=== PATIENT | male | born 1935 | race Caucasian/White ===

== ENCOUNTER 2020-02-06 13:45 | Observation (INO) | payer MEDICARE, OTHER ==
[2020-02-06] MEDS ORDERED: Zofran 4 MG/2 ML VIAL IV ONE (13:53)
[2020-02-06] MEDS ORDERED: DECADRON 10MG INJ. IV ONE (13:53)
[2020-02-06] MEDS ORDERED: Hydromorphone 1 mg/ml Ampule IV ONE ×2 (13:53→17:44)
[2020-02-06] MEDS ORDERED: Sodium Chloride 0.9% 1000 ML 1,000 ML IV SCH ×2 (14:00→18:45)
[2020-02-06 14:10] LABS: BASOPHIL % 0.7 % (0.0-0.4); Basophil (Absolute #) 0.04 (0-0.4); Eosinophil % 3.1 % (0.00-5.0); Eosinophil (Absolute #) 0.18 (0-0.5); Hematocrit 42.2 % (42-50); Hemoglobin 14.1 gm/dl (12.5-18.0); Lymphocyte (Absolute #) 1.01 (1.0-4.6); Lymphocytes % 17.4 % (24.0-44.0); Mean Cell Volume 95.7 fl (78-100); Mean Corpuscular Hgb Concent. 33.4 g/dl (32-36); Mean Platelet Volume 10.2 fl (7.5-11.0); Monocyte (Absolute #) 0.39 (0.0-1.3); Monocytes % 6.7 % (0.0-12.0); Neutrophil % 72.1 % (36.0-66.0); Platelet Count 160 K/mm3 (150-450); Red Blood Count 4.41 M/mm3 (4.1-5.6); Red Cell Distribution Width 14.6 % (11.5-14.0); White Blood Count 5.8 K/mm3 (4.0-10.5)
[2020-02-06] MEDS ORDERED: Catapres 0.1 MG PO ONE (14:13)
[2020-02-06 14:20] LABS: ALBUMIN 4.4 g/dL (3.5-5.0); ANION GAP 12.1 MEQ/L (5-15); BILIRUBIN,TOTAL 0.7 mg/dL (0.2-1.3); Calcium 10.8 mg/dL (8.4-10.2); Creatinine 1 1.25 mg/dL (0.66-1.25); Potassium 3.9 mmol/L (3.5-5.1); Total Protein 7.8 g/dL (6.3-8.2)
[2020-02-06] MEDS ORDERED: Hydromorphone 1 mg/ml Ampule ONE ×2 (14:24→17:50)
[2020-02-06] MEDS ORDERED: Zofran 4 MG/2 ML VIAL ONE (14:24)
[2020-02-06] MEDS ORDERED: DECADRON 10MG INJ. ONE (14:24)
[2020-02-06] MEDS ORDERED: Sodium Chloride 0.9% 1000 ML 1,000 ML ONE ×2 (14:25→20:55)
[2020-02-06 14:28] LABS: Appearance CLEAR (CLEAR); Bilirubin NEGATIVE (NEGATIVE); Blood NEGATIVE Ery/ul (0-5); Glucose NEGATIVE (NEGATIVE); Ketones NEGATIVE (NEGATIVE); Leukocyte Esterase NEGATIVE (NEGATIVE); Nitrite NEGATIVE (NEGATIVE); Protein,Urine Dip NEGATIVE (Negative); Specific Gravity 1.004 (1.005-1.025); Urobilinogen NEGATIVE mg/dL (0-1)
[2020-02-06] MEDS ORDERED: Catapres 0.1 MG ONE (14:33)
--- NOTE | 2020-02-06 14:35 | ERPHSYRPT ---
- History of Present Illness Time Seen by Provider: 02/06/20 13:55 Source: patient Exam Limitations: no limitations Patient Subjective Stated Complaint: pain in right lower back with no radiation Triage Nursing Assessment: Pt brought to the ER by EMS, pt was mowing the grass when he twisted his back, pt in severe pain in right lower back above his hip, denies radiation of pain, rates pain 10/10, pratima LE swelling, hypertensive, pt reports having this pain on pratima sides in the past that lasted approx 3 days and then it would go away, no difficulties with strength Physician History: Is an 84-year-old white male who presents with a complaint of severe back pain right side just above the buttocks and the lower back he was mowing his yard and the pain became more severe this is been going on and off for 2 weeks but not getting better he denies any nausea vomiting diarrhea change in urination or abdominal pain. He has no known injury has a history of sciatica. Timing/Duration: week(s) (2) Method of Injury: unknown Quality: sharp, stabbing Back Pain Location: lumbar spine Back Pain Radiation: buttocks (rioght) Modifying Factors: Improves With: nothing Associated Symptoms: denies symptoms Previous symptoms: same symptoms as today Allergies/Adverse Reactions: amlodipine [From Norvasc] Allergy (Verified 02/06/20 14:02) oxytetracycline [From Terramycin] Allergy (Verified 02/06/20 14:02) Home Medications: Amiodarone HCl 200 mg PO DAILY 02/06/20 [History] Benazepril HCl 40 mg PO DAILY 02/06/20 [History] Diltiazem HCl [Diltiazem ER] 240 mg PO DAILY 02/06/20 [History] Hydrochlorothiazide 25 mg [hydroDIURIL 25 MG] 25 mg PO DAILY 02/06/20 [ History] Levothyroxine Sodium [Synthroid] 175 mcg PO DAILY 02/06/20 [History] Lovastatin 40 mg PO DAILY 02/06/20 [History] Meloxicam 7.5 mg [Mobic 7.5 MG] 7.5 mg PO DAILY 02/06/20 [History] Metoprolol Succinate 100 mg [Toprol Xl 100 MG] 50 mg PO DAILY 02/06/20 [ History] Metoprolol Tartrate 100 mg PO DAILY 02/06/20 [History] Terazosin HCl 1 mg [Hytrin 1 mg] 1 mg PO DAILY 02/06/20 [History] Warfarin Sodium 2.5 mg [Coumadin 2.5 MG] 2.5 mg PO DAILY 02/06/20 [History ] Travel Risk - International Travel Have you traveled outside of the country in past 3 weeks: No Have you or anyone close to you been diagnosed with or: No Do your reside in a community with a known COVID-19 case?: No If Yes where:: [facility] - Coronavirus Screening Has patient experienced Coronavirus symptoms: No - Review of Systems Constitutional: No Fever, No Chills Eyes: No Symptoms Ears, Nose, & Throat: No Symptoms Respiratory: No Cough, No Dyspnea Cardiac: No Chest Pain, No Edema, No Syncope Abdominal/Gastrointestinal: No Abdominal Pain, No Nausea, No Vomiting, No Diarrhea Genitourinary Symptoms: No Dysuria Musculoskeletal: Back Pain, No Neck Pain Skin: No Rash Neurological: No Dizziness, No Focal Weakness, No Sensory Changes Psychological: No Symptoms Endocrine: No Symptoms All Other Systems: Reviewed and Negative - Past Medical History Pertinent Past Medical History: Yes Cardiac History: Arrhythmia, Hypertension History: Bladder Cancer - Past Surgical History Past Surgical History: Yes Genitourinary: Other - Social History Smoking Status: Never smoker Exposure to second hand smoke: No Drug Use: none Patient Lives Alone: No - Nursing Vital Signs Nursing Vital Signs: Initial Vital Signs Temperature 97.4 F 02/06/20 13:49 Pulse Rate 65 02/06/20 13:49 Blood Pressure 226/96 02/06/20 13:49 O2 Sat by Pulse Oximetry 99 02/06/20 13:49 Pain Scale Pain Intensity [Right Distal 10 Back] Pain Intensity 4 - Physical Exam General Appearance: no apparent distress, alert Eye Exam: PERRL/EOMI, eyes nml inspection Neck Exam: normal inspection, non-tender, supple, full range of motion, No meningismus, No midline tenderness Respiratory Exam: normal breath sounds, lungs clear, No respiratory distress Cardiovascular Exam: regular rate/rhythm, normal heart sounds Gastrointestinal Exam: soft, No tenderness, No mass Back Exam: vertebral tenderness, decreased range of motion, muscle spasm, point tenderness (Point tenderness over the right SI joint), No normal range of motion Extremity Exam: normal inspection, normal range of motion, No calf tenderness, No pedal edema Neurologic Exam: alert, oriented x 3, cooperative, 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 Those were felt to be inadequate we did talk to [facility] Dr. Balderas who asked that we do a CTA of the abdomen that was done and it does not show any dissection or hemorrhage. Family does report a history of previous aneurysm which has apparently been lost to follow-up.) Ordered Tests: Active Orders 24 hr Category Date Time Status CTA ABD/PEL W AND/OR W/O CONTR [CT] Stat Exams 02/06/20 16:39 Taken CTA CHEST W AND/OR WO [CT] Stat Exams 02/06/20 16:39 Taken LUMBAR SPINE W/O [CT] Stat Exams 02/06/20 13:52 Completed RECONSTRUCTION [CT] Stat Exams 02/06/20 15:07 Completed CBC W DIFF Stat Lab 02/06/20 14:00 Completed CMP Stat Lab 02/06/20 14:00 Completed LIPASE Stat Lab 02/06/20 14:00 Completed Lactic Acid Stat Lab 02/06/20 14:10 Completed PROTIME WITH INR Stat Lab 02/06/20 14:00 Completed UA W/RFX UR CULTURE Stat Lab 02/06/20 14:18 Completed Medication Summary Generic Name Dose Route Start Last Admin Trade Name Freq PRN Reason Stop Dose Admin Sodium Chloride 1,000 mls @ 100 mls/hr 02/06/20 14:00 02/06/20 14:27 Sodium Chloride 0.9% 1000 Ml IV 03/07/20 13:59 100 mls/hr .Q10H HILARIA Administration Discontinued Medications Generic Name Dose Route Start Last Admin Trade Name Freq PRN Reason Stop Dose Admin Clonidine 0.1 mg 02/06/20 14:13 02/06/20 14:37 Catapres 0.1 Mg PO 02/06/20 14:14 0.1 mg STAT ONE Administration Clonidine Confirm 02/06/20 14:33 Catapres 0.1 Mg Administered 02/06/20 14:34 Dose 0.1 mg .ROUTE .STK-MED ONE Dexamethasone Sodium Phosphate 10 mg 02/06/20 13:53 02/06/20 14:26 Decadron 10mg Inj. IV 02/06/20 13:54 10 mg STAT ONE Administration Dexamethasone Sodium Phosphate Confirm 02/06/20 14:24 Decadron 10mg Inj. Administered 02/06/20 14:25 Dose 10 mg .ROUTE .STK-MED ONE Hydromorphone HCl 1 mg 02/06/20 13:53 02/06/20 14:26 Hydromorphone 1 Mg/Ml Ampule IV 02/06/20 13:54 1 mg STAT ONE Administration Hydromorphone HCl Confirm 02/06/20 14:24 Hydromorphone 1 Mg/Ml Ampule Administered 02/06/20 14:25 Dose 1 mg .ROUTE .STK-MED ONE Hydromorphone HCl 1 mg 02/06/20 17:44 02/06/20 17:52 Hydromorphone 1 Mg/Ml Ampule IV 02/06/20 17:45 1 mg STAT ONE Administration Hydromorphone HCl Confirm 02/06/20 17:50 Hydromorphone 1 Mg/Ml Ampule Administered 02/06/20 17:51 Dose 1 mg .ROUTE .STK-MED ONE Ondansetron HCl 4 mg 02/06/20 13:53 02/06/20 14:26 Zofran 4 Mg/2 Ml Vial IV 02/06/20 13:54 4 mg STAT ONE Administration Ondansetron HCl Confirm 02/06/20 14:24 Zofran 4 Mg/2 Ml Vial Administered 02/06/20 14:25 Dose 4 mg .ROUTE .STK-MED ONE Lab/Rad Data: Laboratory Result Diagrams 02/06/20 14:00 02/06/20 14:00 Laboratory Results 02/06/20 02/06/20 02/06/20 Range/Units 14:18 14:10 14:00 WBC (4.0-10.5) K/mm3 RBC (4.1-5.6) M/mm3 Hgb (12.5-18.0) gm/dl Hct (42-50) % MCV (78-100) fl MCH (26-32) pg MCHC (32-36) g/dl RDW (11.5-14.0) % Plt Count (150-450) K/mm3 MPV (7.5-11.0) fl Gran % (36.0-66.0) % Eos # (Auto) (0-0.5) Absolute Lymphs (auto) (1.0-4.6) Absolute Monos (auto) (0.0-1.3) Lymphocytes % (24.0-44.0) % Monocytes % (0.0-12.0) % Eosinophils % (0.00-5.0) % Basophils % (0.0-0.4) % Absolute Granulocytes (1.4-6.9) Basophils # (0-0.4) PT 38.3 H (8.83-12.87) SECONDS INR 3.31 H (0.8-3.0) Sodium (137-145) mmol/L Potassium (3.5-5.1) mmol/L Chloride (98-107) mmol/L Carbon Dioxide (22-30) mmol/L Anion Gap (5-15) MEQ/L BUN (9-20) mg/dL Creatinine (0.66-1.25) mg/dL Estimated GFR ML/MIN Glucose (74-106) mg/dL Lactic Acid 1.3 (0.4-2.0) Calcium (8.4-10.2) mg/dL Total Bilirubin (0.2-1.3) mg/dL AST (17-59) U/L ALT (0-50) U/L Alkaline Phosphatase (38-126) U/L Serum Total Protein (6.3-8.2) g/dL Albumin (3.5-5.0) g/dL Lipase (23-300) U/L Urine Color STRAW (YELLOW) Urine Appearance CLEAR (CLEAR) Urine pH 8.0 (5-6) Ur Specific [place] 1.004 (1.005-1.025) Urine Protein NEGATIVE (Negative) Urine Ketones NEGATIVE (NEGATIVE) Urine Blood NEGATIVE (0-5) Ayaz/ul Urine Nitrite NEGATIVE (NEGATIVE) Urine Bilirubin NEGATIVE (NEGATIVE) Urine Urobilinogen NEGATIVE (0-1) mg/dL Ur Leukocyte Esterase NEGATIVE (NEGATIVE) Urine WBC (Auto) NONE (0-5) /HPF Urine RBC (Auto) 3-5 (0-2) /HPF U Epithel Cells (Auto) NONE (FEW) /HPF Urine Bacteria (Auto) NONE (NEGATIVE) /HPF Urine Culture Reflexed NO (NO) Urine Glucose NEGATIVE (NEGATIVE) mg/dL 02/06/20 02/06/20 02/06/20 Range/Units 14:00 14:00 14:00 WBC 5.8 (4.0-10.5) K/mm3 RBC 4.41 (4.1-5.6) M/mm3 Hgb 14.1 (12.5-18.0) gm/dl Hct 42.2 (42-50) % MCV 95.7 (78-100) fl MCH 32.0 (26-32) pg MCHC 33.4 (32-36) g/dl RDW 14.6 H (11.5-14.0) % Plt Count 160 (150-450) K/mm3 MPV 10.2 (7.5-11.0) fl Gran % 72.1 H (36.0-66.0) % Eos # (Auto) 0.18 (0-0.5) Absolute Lymphs (auto) 1.01 (1.0-4.6) Absolute Monos (auto) 0.39 (0.0-1.3) Lymphocytes % 17.4 L (24.0-44.0) % Monocytes % 6.7 (0.0-12.0) % Eosinophils % 3.1 (0.00-5.0) % Basophils % 0.7 (0.0-0.4) % Absolute Granulocytes 4.20 (1.4-6.9) Basophils # 0.04 (0-0.4) PT (8.83-12.87) SECONDS INR (0.8-3.0) Sodium 140 (137-145) mmol/L Potassium 3.9 (3.5-5.1) mmol/L Chloride 106 (98-107) mmol/L Carbon Dioxide 26 (22-30) mmol/L Anion Gap 12.1 (5-15) MEQ/L BUN 19 (9-20) mg/dL Creatinine 1.25 (0.66-1.25) mg/dL Estimated GFR 58.6 ML/MIN Glucose 95 (74-106) mg/dL Lactic Acid (0.4-2.0) Calcium 10.8 H (8.4-10.2) mg/dL Total Bilirubin 0.70 (0.2-1.3) mg/dL AST 26 (17-59) U/L ALT 19 (0-50) U/L Alkaline Phosphatase 103 (38-126) U/L Serum Total Protein 7.8 (6.3-8.2) g/dL Albumin 4.4 (3.5-5.0) g/dL Lipase 43 (23-300) U/L Urine Color (YELLOW) Urine Appearance (CLEAR) Urine pH (5-6) Ur Specific [place] (1.005-1.025) Urine Protein (Negative) Urine Ketones (NEGATIVE) Urine Blood (0-5) Ayaz/ul Urine Nitrite (NEGATIVE) Urine Bilirubin (NEGATIVE) Urine Urobilinogen (0-1) mg/dL Ur Leukocyte Esterase (NEGATIVE) Urine WBC (Auto) (0-5) /HPF Urine RBC (Auto) (0-2) /HPF U Epithel Cells (Auto) (FEW) /HPF Urine Bacteria (Auto) (NEGATIVE) /HPF Urine Culture Reflexed (NO) Urine Glucose (NEGATIVE) mg/dL - Progress Progress: unchanged - Departure Departure Disposition: Observation Clinical Impression: Intractable back pain, Abdominal aortic aneurysm Condition: Fair Critical Care Time: No
[2020-02-06 14:40] LABS: INR 3.31 (0.8-3.0); PROTIME 38.3 SECONDS (8.83-12.87)
--- NOTE | 2020-02-06 14:48 | XRAY ---
Indication: Low back pain. Multiple contiguous axial images obtained through the lumbar spine. Two-dimensional sagittal and coronal reformatted images obtained. Comparison: None Osseous structures demineralized consistent with patient's age. There is moderate multilevel bridging/nonbridging thoracolumbar osteophytes. The T12-L4 disc levels are negative for large disc herniation or spinal canal stenosis. Facets are symmetric with mild bilateral degenerative facet hypertrophy. At the L4-L5 level, there is spinal canal narrowing due to combination of mild annular disc bulge and moderate bilateral degenerative facet/ligamentum flavum hypertrophy. Mean AP thecal sac diameter is 5-6 mm. Also bilateral foraminal narrowing. At the L5-S1 level, there is minimal broad-based disc bulge and moderate bilateral degenerative facet hypertrophy with subsequent bilateral foraminal narrowing. Sagittal and coronal reformatted images demonstrates normal alignment with vertebral body heights/disc spaces maintained. No acute compression fracture or subluxation. Visualized noncontrasted soft tissues demonstrates extensive aortic calcifications with incompletely visualized distal AAA at least 4.8 cm in diameter. Impression: 1. Osteopenia and multilevel degenerative disc disease, greatest L4-L5 level. Outpatient MRI may yield further information. 2. Negative for acute fracture or subluxation. 3. 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
--- NOTE | 2020-02-06 15:36 | XRAY ---
Indication: Rib related. Low back pain. Axial, coronal, and sagittal reformatted images of the abdomen obtained using the raw data from the CT lumbar spine study of the same day. Extensive scattered aortoiliac calcifications including origin of the left and right main renal arteries. Distal fusiform AAA measures 4.3 x 5.0 x 3.2 cm in greatest AP, transverse, and CC projections respectively. Smaller 3.5 x 2.7 cm fusiform aneurysm just inferior to the main renal arteries. Lack of IV contrast precludes further characterization. No free fluid/air. Elsewhere right kidney demonstrates a few cysts, largest 1.5 cm. Tiny 4 mm gallstone. Tiny calcified hepatic/splenic granulomas. Mild diffuse scattered colonic fecal debris. Incompletely visualized markedly distended urinary bladder concerning for outlet obstruction versus neurogenic bladder. Remaining visualized liver, pancreas, spleen, adrenal glands, kidneys, and proximal ureters appear unremarkable for noncontrast exam. Impression: 1. Extensive arteriosclerotic disease with distal AAA as detailed. 2. Incompletely visualized markedly distended urinary bladder. Rule out outlet obstruction versus neurogenic bladder. 3. Incidental tiny gallstone, right renal cysts, mild fecal stasis, and evidence for old granulomatous disease.
[2020-02-06] MEDS ORDERED: DILAUDID 2 MG INJECTION IV PRN (18:32)
[2020-02-06] MEDS ORDERED: Toprol Xl 50 MG PO SCH (22:00)
[2020-02-06] MEDS ORDERED: Cyclobenzaprine 10 MG PO SCH (22:00)
[2020-02-06] MEDS ORDERED: Coumadin 5 MG ONE (22:08)
[2020-02-06] MEDS: Cordarone 200 MG PO SCH (22:16)
[2020-02-06] MEDS: SYNTHROID 100 MCG PO SCH (22:16)
[2020-02-06] MEDS: ZOCOR 20MG PO SCH (22:16)
[2020-02-06] MEDS: SYNTHROID 75 MCG PO SCH (22:16)
[2020-02-06] MEDS: Coumadin 5 MG PO SCH (22:17)
[2020-02-07] MEDS: Lotensin 10 MG PO SCH (05:13)
[2020-02-07 05:21] LABS: Absolute Neutrophil Ct (ANC) 4.65 (1.4-6.9); BASOPHIL % 0.2 % (0.0-0.4); Basophil (Absolute #) 0.01 (0-0.4); Eosinophil % 0.2 % (0.00-5.0); Eosinophil (Absolute #) 0.01 (0-0.5); Hematocrit 43.1 % (42-50); Hemoglobin 14.3 gm/dl (12.5-18.0); Lymphocyte (Absolute #) 0.46 (1.0-4.6); Lymphocytes % 8.8 % (24.0-44.0); Mean Cell Volume 95.6 fl (78-100); Mean Corpuscular Hemoglobin 31.7 pg (26-32); Mean Corpuscular Hgb Concent. 33.2 g/dl (32-36); Mean Platelet Volume 10.3 fl (7.5-11.0); Monocyte (Absolute #) 0.08 (0.0-1.3); Monocytes % 1.5 % (0.0-12.0); Neutrophil % 89.3 % (36.0-66.0); Platelet Count 164 K/mm3 (150-450); Red Blood Count 4.51 M/mm3 (4.1-5.6); Red Cell Distribution Width 14.7 % (11.5-14.0); White Blood Count 5.2 K/mm3 (4.0-10.5)
[2020-02-07 05:45] LABS: ALKALINE PHOSPHATASE 96 U/L (38-126); ANION GAP 12.5 MEQ/L (5-15); BLOOD UREA NITROGEN 22 mg/dL (9-20); CHLORIDE 107 mmol/L (98-107); Calcium 10.9 mg/dL (8.4-10.2); Carbon Dioxide 24 mmol/L (22-30); Creatinine 1 1.05 mg/dL (0.66-1.25); Glucose 136 mg/dL (74-106); MAGNESIUM 2.3 mg/dL (1.6-2.3); Potassium 4.1 mmol/L (3.5-5.1); SGOT/AST 26 U/L (17-59); SGPT/ALT 18 U/L (0-50); SODIUM 139 mmol/L (137-145); Total Protein 7.4 g/dL (6.3-8.2)
[2020-02-07] MEDS ORDERED: NORCO 5/325 MG PO PRN (08:12)
[2020-02-07] MEDS ORDERED: TYLENOL EXTRA STRENGTH 500 MG PO PRN (08:14)
--- NOTE | 2020-02-07 08:17 | XRAY ---
Indication: Back pain. Aortic aneurysm. Conventional contrast enhanced CTA chest was performed using 80 cc Isovue 370 contrast. Two-dimensional sagittal and coronal reformatted images obtained. Additional 3-dimensional reformatted images obtained using a separate workstation. Comparison: None Thoracic aorta demonstrates moderate scattered arteriosclerotic calcifications without aneurysm/dissection. Heart is enlarged with additional scattered coronary calcifications. [place] subcarinal and small right perihilar calcified nodes. No pathologic mediastinal/hilar lymphadenopathy. Lungs hyperinflated with diffuse peripheral fibrosis/scarring bilaterally greatest in lung bases. Small posterior right lower lobe calcified granuloma. No suspicious pulmonary mass, infiltrate, or effusion. Bony thorax intact with osteopenia. Also moderate flowing osteophytes throughout the spine. CTA abdomen/pelvis reported separately. Impression: 1. Moderate aortic and coronary arteriosclerotic calcifications. Negative aneurysm/dissection. 2. Cardiomegaly, pulmonary fibrosis/scarring, chronic bony findings, and evidence for old granulomatous disease. 3. No acute cardiopulmonary abnormalities.
--- NOTE | 2020-02-07 08:25 | XRAY ---
Indication: Back pain. Aortic aneurysm. Conventional contrast enhanced CTA abdomen/pelvis was performed using 80 cc Isovue 370 contrast. Two-dimensional sagittal and coronal reformatted images obtained. Additional 3-dimensional reformatted images obtained using a separate workstation. Comparison: None. There is CT lumbar spine performed earlier in the day. CTA chest reported separately. Abdominal aorta demonstrates moderate scattered arteriosclerotic calcifications including origin of main renal arteries bilaterally. 3.5 x 2.7 cm fusiform abdominal aortic aneurysm seen just inferior to the main arteries. Distal aorta demonstrates 4.3 x 5.0 cm fusiform aneurysm. Negative for active hemorrhage or dissection. Noncontrasted stomach and bowel loops appear nonobstructed. There is mild diffuse scattered colonic fecal debris throughout including rectum. No free fluid/air. Liver is enlarged measuring 21 cm and spleen is enlarged measuring 13 cm. Tiny 4 mm gallstone and tiny hepatic/splenic calcified granulomas. Right kidney demonstrates a few cysts, largest lower pole measuring 1.5 cm. No hydronephrosis or hydroureter. Markedly distended urinary bladder either outlet obstruction versus neurogenic bladder. Enlarged prostate gland does impress on the base of the bladder. Remaining liver, all bladder, pancreas, spleen, adrenal glands, kidneys, ureters, and bladder appear unremarkable for noncontrast exam. No pathological retroperitoneal lymphadenopathy. Osseous structures intact with osteopenia and multilevel degenerative spondylosis. Impression: 1. Scattered arteriosclerotic calcifications with distal AAA as detailed. 2. Distended urinary bladder either outlet obstruction versus neurogenic bladder. Outlet obstruction more likely given enlarged prostate gland. 3. Hepatosplenomegaly, mild fecal stasis, right renal cysts, chronic bony findings, and evidence for old granulomatous disease.
[2020-02-07 09:20] LABS: INR 2.74 (0.8-3.0); PROTIME 31.6 SECONDS (8.83-12.87)
[2020-02-07] MEDS: Cardizem CD 120 MG PO SCH (09:41)
[2020-02-07] MEDS: Cyclobenzaprine 10 MG PO SCH ×4 (09:41→21:39)
[2020-02-07] MEDS: SYNTHROID 75 MCG PO SCH (09:42)
[2020-02-07] MEDS: HYTRIN 1 MG PO SCH (09:42)
[2020-02-07] MEDS: hydroDIURIL 25 MG PO SCH (09:42)
[2020-02-07 09:52] LABS: TSH, 3RD Generation 0.643 mIU/L (0.47-4.68)
[2020-02-07] MEDS ORDERED: DILTIAZEM HCL 240 MG PO SCH (10:00)
--- NOTE | 2020-02-07 16:26 | PCM.HP ---
History of Present Illness - Chief Complaint Chief Complaint: Intractable Back pain History of Present Illness: is a 84 year old male who was admitted through ER with intractable Right lumbar pain . The pain started 2 weeks ago when he had been out doing yard work /mowing the grass. Dr Dubois is his PCP and treated him with Mobic that helped initially. The pain is better when resting and worse with sit to stand and walking. Medications & Allergies Home Medications: Home Medication List Amiodarone HCl 200 mg PO HS 02/06/20 [History Confirmed 02/06/20] Benazepril HCl 40 mg PO DAILY 02/06/20 [History Confirmed 02/06/20] Diltiazem HCl [Diltiazem ER] 240 mg PO DAILY 02/06/20 [History Confirmed ] Hydrochlorothiazide 25 mg [hydroDIURIL 25 MG] 25 mg PO DAILY 02/06/20 [ History Confirmed 02/06/20] Levothyroxine Sodium [Synthroid] 175 mcg PO HS 02/06/20 [History Confirmed 02/05] Lovastatin 40 mg PO HS 02/06/20 [History Confirmed 02/06/20] Meloxicam 7.5 mg [Mobic 7.5 MG] 7.5 mg PO BID 02/06/20 [History Confirmed 02/06/20] Metoprolol Succinate 100 mg [Toprol Xl 100 MG] 50 mg PO HS 02/06/20 [ History Confirmed 02/06/20] Metoprolol Tartrate 100 mg PO DAILY 02/06/20 [History Confirmed 02/06/20] Terazosin HCl 1 mg [Hytrin 1 mg] 1 mg PO DAILY 02/06/20 [History Confirmed 02/06/20] Warfarin Sodium 2.5 mg [Coumadin 2.5 MG] 2.5 mg PO EVENING MEAL 02/06/20 [ History Confirmed 02/06/20] Allergies/Adverse Reactions: Allergies Allergy/AdvReac Type Severity Reaction Status Date / Time amlodipine [From Norvasc] AdvReac Severe Verified 02/06/20 19:53 oxytetracycline AdvReac Severe Swelling Verified 02/06/20 19:53 [From Terramycin] of Face - Past Medical History Past Medical History: Yes Neurological History: No Pertinent History ENT History: Cataracts Cardiac History: Aneurysm, Arrhythmia, High Cholesterol, Hypertension, Other Respiratory History: No Pertinent History Endocrine Medical History: Hypothyroidism Musculoskelatal History: Arthritis, Degenerative Disk Disease, Other GI Medical History: No Pertinent History History: Bladder Cancer Pyscho-Social History: No Pertinent History Male Reproductive Disorders: No Pertinent History Comment: osteopenia, and gout. extensive arterosclerotic disease with abd aortic aneurysm - Past Surgical History Past Surgical History: Yes Neuro Surgical History: No Pertinent History Cardiac History: No Pertinent History Respiratory Surgery: No Pertinent History GI Surgical History: No Pertinent History Genitourinary Surgical Hx: Other Musculskeletal Surgical Hx: No Pertinent History Male Surgical History: No Pertinent History Other Surgical History: hx of bladder CA with surgery. cataract surgery - Social History Smoking Status: Never smoker Exposure to second hand smoke: No Alcohol: None Drug Use: none - Physical Exam Vital Signs: Vital Signs - 24 hr Temp Pulse Resp BP BP Pulse Ox 02/07/20 14:37 97.8 F 40 L 18 126/60 93 L 02/07/20 11:55 97.9 F 65 20 128/80 95 02/07/20 10:00 97.5 F 71 18 151/72 95 02/07/20 05:20 98.1 F 76 20 160/90 96 02/07/20 02:00 97.9 F 76 20 160/90 95 02/06/20 22:24 140/75 02/06/20 20:07 97.6 F 68 22 180/90 02/06/20 18:31 99 02/06/20 18:03 66 22 204/94 100 02/06/20 16:51 58 L 18 179/66 Results - Labs Lab/Micro Results: Lab Results-Last 24 Hours 02/07/20 02/07/20 02/07/20 Range/Units 04:25 04:25 04:25 WBC 5.2 (4.0-10.5) K/mm3 RBC 4.51 (4.1-5.6) M/mm3 Hgb 14.3 (12.5-18.0) gm/dl Hct 43.1 (42-50) % MCV 95.6 (78-100) fl MCH 31.7 (26-32) pg MCHC 33.2 (32-36) g/dl RDW 14.7 H (11.5-14.0) % Plt Count 164 (150-450) K/mm3 MPV 10.3 (7.5-11.0) fl Gran % 89.3 H (36.0-66.0) % Eos # (Auto) 0.01 (0-0.5) Absolute Lymphs (auto) 0.46 L (1.0-4.6) Absolute Monos (auto) 0.08 (0.0-1.3) Lymphocytes % 8.8 L (24.0-44.0) % Monocytes % 1.5 (0.0-12.0) % Eosinophils % 0.2 (0.00-5.0) % Basophils % 0.2 (0.0-0.4) % Absolute Granulocytes 4.65 (1.4-6.9) Basophils # 0.01 (0-0.4) PT (8.83-12.87) SECONDS INR (0.8-3.0) Sodium 139 (137-145) mmol/L Potassium 4.1 (3.5-5.1) mmol/L Chloride 107 (98-107) mmol/L Carbon Dioxide 24 (22-30) mmol/L Anion Gap 12.5 (5-15) MEQ/L BUN 22 H (9-20) mg/dL Creatinine 1.05 (0.66-1.25) mg/dL Estimated GFR > 60.0 ML/MIN Glucose 136 H (74-106) mg/dL Calcium 10.9 H (8.4-10.2) mg/dL Magnesium 2.3 (1.6-2.3) mg/dL Total Bilirubin 0.60 (0.2-1.3) mg/dL AST 26 (17-59) U/L ALT 18 (0-50) U/L Alkaline Phosphatase 96 (38-126) U/L Serum Total Protein 7.4 (6.3-8.2) g/dL Albumin 4.0 (3.5-5.0) g/dL Vitamin B12 244 (239-931) pg/mL TSH 3rd Generation 0.643 (0.47-4.68) mIU/L Slides for Path Review 02/07/20 Range/Units 09:10 WBC (4.0-10.5) K/mm3 RBC (4.1-5.6) M/mm3 Hgb (12.5-18.0) gm/dl Hct (42-50) % MCV (78-100) fl MCH (26-32) pg MCHC (32-36) g/dl RDW (11.5-14.0) % Plt Count (150-450) K/mm3 MPV (7.5-11.0) fl Gran % (36.0-66.0) % Eos # (Auto) (0-0.5) Absolute Lymphs (auto) (1.0-4.6) Absolute Monos (auto) (0.0-1.3) Lymphocytes % (24.0-44.0) % Monocytes % (0.0-12.0) % Eosinophils % (0.00-5.0) % Basophils % (0.0-0.4) % Absolute Granulocytes (1.4-6.9) Basophils # (0-0.4) PT 31.6 H (8.83-12.87) SECONDS INR 2.74 (0.8-3.0) Sodium (137-145) mmol/L Potassium (3.5-5.1) mmol/L Chloride (98-107) mmol/L Carbon Dioxide (22-30) mmol/L Anion Gap (5-15) MEQ/L BUN (9-20) mg/dL Creatinine (0.66-1.25) mg/dL Estimated GFR ML/MIN Glucose (74-106) mg/dL Calcium (8.4-10.2) mg/dL Magnesium (1.6-2.3) mg/dL Total Bilirubin (0.2-1.3) mg/dL AST (17-59) U/L ALT (0-50) U/L Alkaline Phosphatase (38-126) U/L Serum Total Protein (6.3-8.2) g/dL Albumin (3.5-5.0) g/dL Vitamin B12 (239-931) pg/mL TSH 3rd Generation (0.47-4.68) mIU/L Slides for Path Review - Radiology Impressions Radiology Exams & Impressions: Radiology Procedures Category Date Time Status CTA ABD/PEL W AND/OR W/O CONTR [CT] Stat Exams 02/06/20 16:39 Completed CTA CHEST W AND/OR WO [CT] Stat Exams 02/06/20 16:39 Completed LUMBAR SPINE W/O [CT] Stat Exams 02/06/20 13:52 Completed RECONSTRUCTION [CT] Stat Exams 02/06/20 15:07 Completed
[2020-02-07] MEDS: Coumadin 5 MG PO SCH (17:09)
[2020-02-07] MEDS ORDERED: Coumadin 2.5 MG PO SCH (18:00)
[2020-02-07] MEDS: DECADRON 10MG INJ. IV SCH (21:40)
[2020-02-07] MEDS: Cordarone 200 MG PO SCH (21:40)
[2020-02-07] MEDS: ZOCOR 20MG PO SCH (21:41)
[2020-02-07] MEDS: SYNTHROID 100 MCG PO SCH (21:41)
[2020-02-08 08:38] VITALS: PULSE 64
[2020-02-08] MEDS: hydroDIURIL 25 MG PO SCH (10:56)
[2020-02-08] MEDS: Cardizem CD 120 MG PO SCH (10:56)
[2020-02-08] MEDS: Cyclobenzaprine 10 MG PO SCH (10:56)
[2020-02-08] MEDS: SYNTHROID 75 MCG PO SCH (10:56)
[2020-02-08] MEDS: HYTRIN 1 MG PO SCH (10:57)
[2020-02-08] MEDS: Lotensin 10 MG PO SCH (10:58)
[2020-02-08] MEDS: DECADRON 10MG INJ. IV SCH (11:02)
--- NOTE | 2020-02-08 12:14 | PCM.DS ---
Discharge Summary Date of Admission: 02/06/20 19:34 Admitting Physician: ROBERT SOSA DO Primary Care Provider: ANNIKA SHERWOOD Allergies Allergies amlodipine [From Norvasc] Adverse Reaction (Severe, Verified 02/06/20 19:53) coughing oxytetracycline [From Terramycin] Adverse Reaction (Severe, Verified 02/06/20 19 :53) Swelling of Face generalized swelling Hospital Summary - Hospital Course Hospital Course: Patient has had gradual relief of Right lumbar /SI area pain after IV steroid x 3 doses and Flexeril and bedrest.. CT Lumbar showed severe DDD and multilevel neuroforaminal stenosis. Patient is very active at home with outdoor projects. He may benefit from eval and tx with Dr Engel ,Pain management for local lumbar injections and referral was made. Patient has other health issues followed by Psychologist Research Assistant in [place],[facility]. He is on multiple cardiac meds and coumadin. Pulse rate was 39 yesterday . Patient states "it runs in the 40s usually".Evening dose of Metoprolol was held and heart rate 69-70 today.Patient will be following with his Psychologist Research Assistant and PCP, Dr Sherwood regarding his chronic health issues. - Vitals & Intake/Output Vital Signs: Vital Signs Temperature 97.7 F 02/08/20 08:00 Pulse Rate 64 02/08/20 08:00 Respiratory Rate 21 02/08/20 08:00 Blood Pressure 130/80 02/08/20 08:00 O2 Sat by Pulse Oximetry 96 02/08/20 08:00 Intake & Output: Intake & Output 02/06/20 02/07/20 02/08/20 02/09/20 11:59 11:59 11:59 11:59 Intake Total 730 1830 Output Total 100 Balance 730 1730 Weight 107.5 kg - Lab Result Diagrams: 02/07/20 04:25 02/07/20 04:25 - Radiology Exams Ordered Rad Exams-Entire Visit: Radiology Procedures Category Date Time Status CTA ABD/PEL W AND/OR W/O CONTR [CT] Stat Exams 02/06/20 16:39 Completed CTA CHEST W AND/OR WO [CT] Stat Exams 02/06/20 16:39 Completed LUMBAR SPINE W/O [CT] Stat Exams 02/06/20 13:52 Completed RECONSTRUCTION [CT] Stat Exams 02/06/20 15:07 Completed - Procedures and Test Procedures and Tests throughout Hospitalization: Therapy Orders & Screens 02/07/20 09:00 OT Screen per Nursing Assess Comment: Protocol Order Physician Instructions: Greater than 3 points order OT Admission Screening Reason For Exam: Triggered on Admission Diagnosis: Intractable Back pain Open Wound/Cellutlitis/Pressure Ulcers: No Acute Fx/ORIF/Change in wt bearing status: No Severe MUSCULOSKELETAL pain: Yes ADL Dysfunction: No Acute CVA w/Hemiparesis/Hemiplegia: No Decreased Functional Mobility/Strength: Yes Sprain/Strain: No Acute Post-op Mobility Dysfunction: No Total Points: 6 PT Screen per Nursing Assess ONCE Comment: Protocol Order Physician Instructions: Greater than 3 points order PT Admission Screenin Reason For Exam: Triggered on Admission Diagnosis: Intractable Back pain Open Wound/Cellutlitis/Pressure Ulcers: No Acute Fx/ORIF/Change in wt bearing status: No Severe MUSCULOSKELETAL pain: Yes ADL Dysfunction: No Acute CVA w/Hemiparesis/Hemiplegia: No Decreased Functional Mobility/Strength: Yes Sprain/Strain: No Acute Post-op Mobility Dysfunction: No Total Points: 6 Discharge Exam General Appearance: no apparent distress Respiratory Exam: normal breath sounds Cardiovascular Exam: regular rate/rhythm (70 rate,irregular) Gastrointestinal/Abdomen Exam: soft Final Diagnosis/Problem List - Final Discharge Diagnosis/Problem (1) Intractable back pain Current Visit: Yes Status: Resolved Assessment & Plan: improved and is safe to ambulate. Code(s): M54.9 - DORSALGIA, UNSPECIFIED (2) Abdominal aortic aneurysm Current Visit: Yes Status: Acute Assessment & Plan: stable but encouraged follow up with Psychologist Research Assistant. Code(s): I71.4 - ABDOMINAL AORTIC ANEURYSM, WITHOUT RUPTURE (3) B12 deficiency Current Visit: Yes Status: Acute Assessment & Plan: B12 OTC sublingual recommended to help support the nerve endings. Code(s): E53.8 - DEFICIENCY OF OTHER SPECIFIED B GROUP VITAMINS (4) Degenerative disc disease, lumbar Current Visit: Yes Status: Acute Code(s): M51.36 - OTHER INTERVERTEBRAL DISC DEGENERATION, LUMBAR REGION (5) Neural foraminal stenosis of lumbosacral spine Current Visit: Yes Status: Chronic Code(s): M99.83 - OTHER BIOMECHANICAL LESIONS OF LUMBAR REGION (6) Bradycardia Current Visit: Yes Status: Chronic Assessment & Plan: will follow with PCP and Psychologist Research Assistant. Code(s): R00.1 - BRADYCARDIA, UNSPECIFIED (7) Anticoagulant long-term use Current Visit: Yes Status: Acute Assessment & Plan: managed by Dr Sherwood. Code(s): Z79.01 - INSTITUTE DIRECTOR (CURRENT) USE OF ANTICOAGULANTS - Discharge Disposition: Home, Self-Care Condition: Stable Prescriptions: No Action Diltiazem HCl [Diltiazem ER] 240 mg PO DAILY Hydrochlorothiazide 25 mg [hydroDIURIL 25 MG] 25 mg PO DAILY Amiodarone HCl 200 mg PO HS Warfarin Sodium 2.5 mg [Coumadin 2.5 MG] 2.5 mg PO EVENING MEAL Metoprolol Tartrate 100 mg PO DAILY Levothyroxine Sodium [Synthroid] 175 mcg PO HS Terazosin HCl 1 mg [Hytrin 1 mg] 1 mg PO DAILY Metoprolol Succinate 100 mg [Toprol Xl 100 MG] 50 mg PO HS Lovastatin 40 mg PO HS Benazepril HCl 40 mg PO DAILY Meloxicam 7.5 mg [Mobic 7.5 MG] 7.5 mg PO BID Follow up with: ANNIKA SHERWOOD MD [Primary Care Provider] - 1 Week
[2020-02-08 12:28] VITALS: BP 130/82; O2SAT 97
== END 2020-02-08 13:30 | disposition home or self-care (01) ==
LOC: ED 13:45 → MED SURG 19:34
PROVIDERS: ADMIT Family Medicine; ATTEND Family Medicine
DX: M54.5 Low back pain (principal); M54.9 Dorsalgia, unspecified; M48.061 Spinal stenosis, lumbar region without neurogenic claudication; M51.36 Other intervertebral disc degeneration, lumbar region; I71.4 Abdominal aortic aneurysm, without rupture; E53.8 Deficiency of other specified B group vitamins; I25.10 Atherosclerotic heart disease of native coronary artery without angina pectoris; R00.1 Bradycardia, unspecified; I10 Essential (primary) hypertension; E78.00 Pure hypercholesterolemia, unspecified; E03.9 Hypothyroidism, unspecified; Z79.01 Long term (current) use of anticoagulants; Z85.51 Personal history of malignant neoplasm of bladder; Z79.899 Other long term (current) drug therapy
CPT/HCPCS: 36000; 36415; 71275; 72131; 74174; 76376; 80053; 81001; 82607; 83605; 83690; 83735; 84443; 85025; 85610; 93268; 96374; 96375; 96376; 99284; G0378; J1100; J1170; J2405; A9270-GY

== ENCOUNTER 2022-02-24 11:57 | Emergency (ER) | payer MEDICARE, OTHER ==
[2022-02-24] MEDS ORDERED: MORPHINE SULFATE 2 MG INJ IV ONE (12:34)
[2022-02-24] MEDS ORDERED: Zofran 4 MG/2 ML VIAL IV ONE (12:34)
[2022-02-24] MEDS ORDERED: Zofran 4 MG/2 ML VIAL ONE (12:39)
[2022-02-24] MEDS ORDERED: MORPHINE SULFATE 2 MG INJ ONE (12:39)
[2022-02-24 13:07] LABS: Absolute Neutrophil Ct (ANC) 5.91 (1.4-6.9); Basophil (Absolute #) 0.03 (0-0.4); Eosinophil % 3.2 % (0.00-5.0); Eosinophil (Absolute #) 0.26 (0-0.5); Hematocrit 44.5 % (42-50); Hemoglobin 14.8 gm/dl (12.5-18.0); Lymphocyte (Absolute #) 1.17 (1.0-4.6); Lymphocytes % 14.6 % (24.0-44.0); Mean Cell Volume 97.8 fl (78-100); Mean Corpuscular Hemoglobin 32.5 pg (26-32); Mean Corpuscular Hgb Concent. 33.3 g/dl (32-36); Mean Platelet Volume 10.2 fl (7.5-11.0); Monocyte (Absolute #) 0.64 (0.0-1.3); Neutrophil % 73.8 % (36.0-66.0); Platelet Count 194 K/mm3 (150-450); Red Blood Count 4.55 M/mm3 (4.1-5.6); Red Cell Distribution Width 14.3 % (11.5-14.0)
[2022-02-24 13:10] LABS: Appearance CLEAR (CLEAR); Bilirubin NEGATIVE (NEGATIVE); Dipstick done @ ? MAIN LAB; Glucose NEGATIVE (NEGATIVE); Ketones NEGATIVE (NEGATIVE); Nitrite NEGATIVE (NEGATIVE); Protein,Urine Dip NEGATIVE (Negative); RBC NEGATIVE Ery/ul (0-5); Specific Gravity 1.015 (1.005-1.025); Urobilinogen 0.2 mg/dL (0-1)
[2022-02-24 13:24] LABS: ALBUMIN 4.3 g/dL (3.5-5.0); BILIRUBIN,TOTAL 0.7 mg/dL (0.2-1.3); Calcium 10.7 mg/dL (8.4-10.2); Creatinine 1 1.57 mg/dL (0.66-1.25); EST GLOMERULAR FILTRATION RATE 44.9 ML/MIN; Potassium 4.4 mmol/L (3.5-5.1); Total Protein 7.5 g/dL (6.3-8.2)
--- NOTE | 2022-02-24 13:32 | XRAY ---
Indication: Chronic back pain. No known injury. Multiple contiguous images obtained through the lumbar spine. Sagittal and coronal reformatted images obtained. Comparison: February 06, 2020. Again age-related osteopenia with moderate multilevel bridging/nonbridging thoracolumbar osteophytes, mild/moderate multilevel degenerative disc disease, and mild/moderate bilateral L3-S1 degenerative facet hypertrophy. Worsening moderate/advanced L2-L3 degenerative disc disease as evidenced by disc space loss, bony sclerosis/spurring, tiny subcortical cysts, and tiny vacuum disc phenomena. Sagittal and coronal reformatted images again demonstrates normal alignment with now L2-L3 disc space loss. Remaining vertebral body heights/disc spaces maintained. No acute compression fracture or subluxation. Visualized noncontrasted soft tissues again demonstrates extensive aortic calcifications with 5.5 cm distal aortic aneurysm. Impression: Worsening moderate/advanced L2-L3 degenerative disc disease. No acute findings. Otherwise stable osteopenia, multilevel degenerative disc disease, and arteriosclerotic disease with distal AAA.
[2022-02-24 13:55] LABS: Urine Cultured Indicated? NO
--- NOTE | 2022-02-24 14:42 | ERPHSYRPT ---
- History of Present Illness Time Seen by Provider: 02/24/22 12:10 Source: patient Exam Limitations: no limitations Patient Subjective Stated Complaint: pt states "I was at my doctor yesterday and got a shot for my back but it didn't work." Triage Nursing Assessment: pt came into the er via wheelchair; pt is axo x4; c/o back pain; pt states 8/10 pain to left side of back; pt denies trauma or injury to area; pt states hx of back pain for the past couple of years; pt is grabbing site and moaning; tenderness to left flank area; pt denies difficulty urinating or pain with urination; limit ROM to back; hypertensive Physician History: Patient is an 86-year-old male presents to our ED for evaluation of acute on chronic back pain. Patient states that he was at his doctor's office yesterday for this back pain. Patient was given an injection. Patient states the pain medication did not help. Pain described as an ache that is localized to the left lower back. Pain rated at 8 out of 10. No trauma. No fever. No change in bowel bladder function. No saddle anesthesia. No recent back procedures. No abdominal pain. No chest pain or shortness of breath. No nausea vomiting or diaphoresis. Patient voices no other complaints or concerns at this time. Timing/Duration: yesterday Method of Injury: unknown Quality: aching Back Pain Location: lumbar spine (No radiation) Severity of Pain-Max: moderate Severity of Pain-Current: mild Modifying Factors: Improves With: movement (Palpation also reproduces pain.) Associated Symptoms: denies symptoms, No fever, No chills, No sweating, No urinary incontinence, No loss of bowel control, No constipation, No nausea, No vomiting, No problems urinating, No dizziness, No weakness, No sensory/motor loss, No tingling in legs/feet, No lower back pain Previous symptoms: same symptoms as today Allergies/Adverse Reactions: amlodipine [From Norvasc] Adverse Reaction (Severe, Verified 02/24/22 12:07) coughing oxytetracycline [From Terramycin] Adverse Reaction (Severe, Verified 02/24/22 12:07) Swelling of Face generalized swelling cinoxacin [From Cinobac] Adverse Reaction (Verified 02/24/22 13:06) ciprofloxacin [From Cipro] Adverse Reaction (Verified 02/24/22 13:06) delafloxacin [From Baxdela] Adverse Reaction (Verified 02/24/22 13:06) gatifloxacin [From Tequin] Adverse Reaction (Verified 02/24/22 13:06) gemifloxacin [From Factive] Adverse Reaction (Verified 02/24/22 13:06) levofloxacin [From Levaquin] Adverse Reaction (Verified 02/24/22 13:06) lomefloxacin [From Maxaquin] Adverse Reaction (Verified 02/24/22 13:06) moxifloxacin [From Avelox] Adverse Reaction (Verified 02/24/22 13:06) nalidixic acid [From NegGram] Adverse Reaction (Verified 02/24/22 13:06) norfloxacin [From Noroxin] Adverse Reaction (Verified 02/24/22 13:06) ofloxacin [From Ocuflox] Adverse Reaction (Verified 02/24/22 13:06) sparfloxacin [From Zagam] Adverse Reaction (Verified 02/24/22 13:06) trovafloxacin [From Trovan] Adverse Reaction (Verified 02/24/22 13:06) Home Medications: Amiodarone HCl 200 mg PO HS 02/06/20 [History] Benazepril HCl 40 mg PO DAILY 02/06/20 [History] Diltiazem HCl [Diltiazem ER] 240 mg PO DAILY 02/06/20 [History] Hydrochlorothiazide 25 mg [hydroDIURIL 25 MG] 25 mg PO DAILY 02/06/20 [History] Lovastatin 40 mg PO HS 02/06/20 [History] Meloxicam 7.5 mg [Mobic 7.5 MG] 7.5 mg PO BID 02/06/20 [History] Metoprolol Succinate 100 mg [Toprol Xl 100 MG] 100 mg PO HS 02/06/20 [History] Terazosin HCl 1 mg [Hytrin 1 mg] 1 mg PO DAILY 02/06/20 [History] Levothyroxine Sodium 100 Mcg [Synthroid 100 Mcg] 200 mcg PO DAILY 02/09/22 [History] Warfarin Sodium 2 mg PO DAILY 02/09/22 [History] Hx Tetanus, Diphtheria Vaccination/Date Given: Yes Hx Influenza Vaccination/Date Given: No Hx Pneumococcal Vaccination/Date Given: Yes Travel Risk - International Travel Have you traveled outside of the country in past 3 weeks: No - Coronavirus Screening Are you exhibiting any of the following symptoms?: No Close contact with a COVID-19 positive Pt in past 14-21 Days: No - Vaccine Status Have you recieved a Covid-19 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: 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[employer] - Vaccination Dates Date of 2cond Vaccination (if applicable): unknown - Review of Systems Constitutional: No Symptoms, No Fever, No Chills Eyes: No Symptoms Ears, Nose, & Throat: No Symptoms Respiratory: No Symptoms, No Cough, No Dyspnea Cardiac: No Symptoms, No Chest Pain, No Edema, No Syncope Abdominal/Gastrointestinal: No Symptoms, No Abdominal Pain, No Nausea, No Vomiting, No Diarrhea Genitourinary Symptoms: No Symptoms, No Dysuria Musculoskeletal: No Symptoms, No Back Pain, No Neck Pain Skin: No Symptoms, No Rash Neurological: No Symptoms, No Dizziness, No Focal Weakness, No Sensory Changes Psychological: No Symptoms Endocrine: No Symptoms Hematologic/Lymphatic: No Symptoms Immunological/Allergic: No Symptoms All Other Systems: Reviewed and Negative - Past Medical History Pertinent Past Medical History: Yes Neurological History: No Pertinent History ENT History: Cataracts Cardiac History: Aneurysm, Arrhythmia, High Cholesterol, Hypertension, Other Respiratory History: No Pertinent History Endocrine Medical History: Hypothyroidism Musculoskeletal History: Other, Arthritis, Degenerative Disk Disease GI Medical History: No Pertinent History History: Bladder Cancer Psycho-Social History: No Pertinent History Male Reproductive Disorders: No Pertinent History Other Medical History: osteopenia, and gout. extensive arterosclerotic disease with abd aortic aneurysm - Past Surgical History Past Surgical History: Yes Neuro Surgical History: No Pertinent History Cardiac: No Pertinent History Respiratory: No Pertinent History Gastrointestinal: No Pertinent History Genitourinary: Other Musculoskeletal: No Pertinent History Male Surgical History: No Pertinent History Other Surgical History: hx of bladder CA with surgery. cataract surgery - Social History Smoking Status: Never smoker Exposure to second hand smoke: No Drug Use: none Patient Lives Alone: No - Nursing Vital Signs Nursing Vital Signs: Initial Vital Signs Temperature 98.4 F 02/24/22 12:07 Pulse Rate 47 L 02/24/22 12:07 Respiratory Rate 20 02/24/22 12:07 Blood Pressure 225/97 02/24/22 12:07 O2 Sat by Pulse Oximetry 100 02/24/22 12:07 Pain Scale Pain Intensity [] 8 Pain Intensity 2 - Physical Exam General Appearance: no apparent distress, alert Eye Exam: PERRL/EOMI, eyes nml inspection Neck Exam: normal inspection, non-tender, supple, full range of motion, No meningismus, No midline tenderness Respiratory Exam: normal breath sounds, lungs clear, airway intact, No respiratory distress Cardiovascular Exam: regular rate/rhythm, normal heart sounds, normal peripheral pulses Gastrointestinal Exam: soft, normal bowel sounds, No tenderness, No distention, No mass Extremity Exam: normal inspection, normal range of motion, No calf tenderness, No pedal edema Peripheral Pulses: dorsalis-pedis (R): 2+, dorsalis-pedis (L): 2+ Neurologic Exam: alert, oriented x 3, cooperative, camera systems engineer II-XII nml as tested, normal mood/affect, nml station & gait, sensation nml, No motor deficits Skin Exam: normal color, warm, dry, No rash Lymphatic Exam: No adenopathy SpO2 Interpretation: normal SpO2: 97 O2 Delivery: Room Air - Course Nursing assessment & vital signs reviewed: Yes - CT Exams Lumbar Spine CT Interpretation: Tele-radiologist Report (Age-related osteopenia. Multiple osteophytes, multilevel degenerative disc disease, bilateral L3-L5 degenerative facet arthropathy. Worsening moderate to advanced L to to L3 degenerative disc disease normal alignment. No fractures or dislocations. Extensive aortic calcifications. With 5.5 cm ) Other CT Interpretation: Tele-radiologist Report (CT angio. Compared to 02/06/2020 again scattered atherosclerotic aorta with distal 4.5 x 5.6 AAA previously 4.1 x 5.3 cm. Bilateral runoff demonstrates mild scattered disease without critical stenosis/obstruction. Normal three-vessel runoff to both feet) Ordered Tests: Active Orders 24 hr Category Date Time Status IV Insertion STAT Care 02/24/22 12:34 Active CTA ABD/PEL W FEM RUNOFF [CT] Stat Exams 02/24/22 16:52 Taken LUMBAR SPINE W/O [CT] Stat Exams 02/24/22 12:38 Completed CBC W DIFF Stat Lab 02/24/22 12:55 Completed CMP Stat Lab 02/24/22 12:55 Completed UA W/RFX CULTURE Stat Lab 02/24/22 12:30 Completed Medication Summary Generic Name Dose Route Start Last Admin Trade Name Freq PRN Reason Stop Dose Admin Sodium Nitroprusside 50 mg/ 252 mls @ 0 mls/hr 02/24/22 15:25 02/24/22 16:43 Dextrose IV 03/26/22 15:24 10 mls/hr .Q0M PRN 10 mls/hr HYPERTENSION Administration Protocol Titrate Discontinued Medications Generic Name Dose Route Start Last Admin Trade Name Freq PRN Reason Stop Dose Admin Esmolol HCl 1,000 mg/ Sodium 150 mls @ 50 mls/hr 02/24/22 16:00 02/24/22 18:57 Chloride IV 02/24/22 18:59 50 mls/hr .Q3H HILARIA 50 mls/hr Administration Morphine Sulfate 2 mg 02/24/22 12:34 02/24/22 12:40 Morphine Sulfate 2 Mg/Ml Inj IV 02/24/22 12:35 2 mg STAT ONE Administration Morphine Sulfate Confirm 02/24/22 12:39 Morphine Sulfate 2 Mg/Ml Inj Administered 02/24/22 12:40 Dose 2 mg .ROUTE .STK-MED ONE Ondansetron HCl 4 mg 02/24/22 12:34 02/24/22 12:40 Ondansetron Hcl 4 Mg/2 Ml Vial IV 02/24/22 12:35 4 mg STAT ONE Administration Ondansetron HCl Confirm 02/24/22 12:39 Ondansetron Hcl 4 Mg/2 Ml Vial Administered 02/24/22 12:40 Dose 4 mg .ROUTE .STK-MED ONE Lab/Rad Data: Laboratory Result Diagrams 02/24/22 12:55 02/24/22 12:55 Laboratory Results 02/24/22 02/24/22 02/24/22 Range/Units 12:55 12:55 12:30 WBC 8.0 (4.0-10.5) K/mm3 RBC 4.55 (4.1-5.6) M/mm3 Hgb 14.8 (12.5-18.0) gm/dl Hct 44.5 (42-50) % MCV 97.8 (78-100) fl MCH 32.5 H (26-32) pg MCHC 33.3 (32-36) g/dl RDW 14.3 H (11.5-14.0) % Plt Count 194 (150-450) K/mm3 MPV 10.2 (7.5-11.0) fl Gran % 73.8 H (36.0-66.0) % Eos # (Auto) 0.26 (0-0.5) Absolute Lymphs (auto) 1.17 (1.0-4.6) Absolute Monos (auto) 0.64 (0.0-1.3) Lymphocytes % 14.6 L (24.0-44.0) % Monocytes % 8.0 (0.0-12.0) % Eosinophils % 3.2 (0.00-5.0) % Basophils % 0.4 (0.0-0.4) % Absolute Granulocytes 5.91 (1.4-6.9) Basophils # 0.03 (0-0.4) Sodium 138 (137-145) mmol/L Potassium 4.4 (3.5-5.1) mmol/L Chloride 102 (98-107) mmol/L Carbon Dioxide 26 (22-30) mmol/L Anion Gap 14.0 (5-15) MEQ/L BUN 37 H (9-20) mg/dL Creatinine 1.57 H (0.66-1.25) mg/dL Estimated GFR 44.9 ML/MIN Glucose 92 (74-106) mg/dL Calcium 10.7 H (8.4-10.2) mg/dL Total Bilirubin 0.70 (0.2-1.3) mg/dL AST 26 (17-59) U/L ALT 21 (0-50) U/L Alkaline Phosphatase 91 (38-126) U/L Serum Total Protein 7.5 (6.3-8.2) g/dL Albumin 4.3 (3.5-5.0) g/dL Urinalys Dipstick Clnc MAIN LAB Urine Color YELLOW (YELLOW) Urine Appearance CLEAR (CLEAR) Urine pH 7.0 (5-6) Ur Specific [place] 1.015 (1.005-1.025) POC Urine Protein Conf NEGATIVE (Negative) Urine Ketones NEGATIVE (NEGATIVE) Urine Nitrite NEGATIVE (NEGATIVE) Urine Bilirubin NEGATIVE (NEGATIVE) Urine Urobilinogen 0.2 (0-1) mg/dL Urine Leukocytes NEGATIVE (NEGATIVE) Urine WBC (Auto) NONE (0-5) /HPF Urine RBC (Auto) NONE (0-2) /HPF U Epithel Cells (Auto) NONE (FEW) /HPF Urine Bacteria (Auto) NONE (NEGATIVE) /HPF Urine RBC NEGATIVE (0-5) Ayaz/ul Ur Culture Indicated? NO Urine Glucose NEGATIVE (NEGATIVE) mg/dL - Progress Progress: improved Progress Note: Patient's AAA has enlarged from 4.2 cm to 4.8 cm on 08/13/2020 today 02/24/2022 AAA measures 5.5 cm. Case discussed with Dr. Sherwood who advised transfer to [facility]. Patient's surgeon Dr. Obey Fitzgerald 02/24/22 15:[address] Scott vascular surgery at [facility]. He does not agree with the 5.5 cm AAA read. He is requesting a CTA to further assess the AAA for accurate read to determine whether or not patient will require surgical intervention or not 02/24/22 17:01 Counseled pt/family regarding: diagnosis, need for follow-up, rad results - Departure Departure Disposition: Home Clinical Impression: Acute renal injury, Acute exacerbation of chronic low back pain, Degenerative disc disease, Arteriosclerotic cardiovascular disease, Distal 5.5 cm abdominal aortic aneurysm, Hypertensive urgency, Enlarging abdominal aortic aneurysm (AAA) Condition: Stable Critical Care Time: No Referrals: ANNIKA SHERWOOD MD [Primary Care Provider] - Follow up/PCP as directed
[2022-02-24] MEDS: BREVIBLOC IV SCH ×2 (16:07→18:57)
[2022-02-24] MEDS: SODIUM CHLORIDE 0.9% IV SCH ×2 (16:07→18:57)
[2022-02-24] MEDS: WATER IV PRN ×2 (16:08→16:43)
[2022-02-24] MEDS: [UNRECOGNIZED DRUG - OTHER] IV PRN ×2 (16:08→16:43)
[2022-02-24] MEDS: DEXTROSE IV PRN ×2 (16:08→16:43)
[2022-02-24] MEDS ORDERED: Sodium Chloride 0.9% 500 ML 500 ML IV ONE ×2 (19:50)
[2022-02-24 23:02] VITALS: BP 126/69; PULSE 56; O2SAT 98
--- NOTE | 2022-02-25 09:41 | XRAY ---
Indication: AAA. Conventional contrast enhanced CTA abdominal aorta with bilateral runoff performed using 125 cc Isovue 370 contrast. Two-dimensional sagittal and coronal reformatted images obtained. Additional 3-dimensional reformatted images obtained using a separate workstation. Comparison: CTA abdomen/pelvis February 06, 2020. Abdominal aorta again demonstrates moderate scattered arteriosclerotic calcifications. There remains mild calcifications at the origin of the superior mesenteric and both main renal arteries without critical stenosis/obstruction. Remaining celiac and inferior mesenteric arteries are normal in CTA appearance. Distal abdominal aorta again demonstrates saccular-like aneurysm measuring 4.5 x 5.6 in the axial dimension, previously 4.1 x 5.3 cm. No free fluid or evidence for active hemorrhage. Right leg runoff demonstrates minimal/mild scattered arteriosclerotic disease in the common iliac, distal common femoral, popliteal, distal tibial peroneal trunk, and posterior tibial arteries without critical stenosis/obstruction. Remaining external iliac, deep femoral, superficial femoral, anterior tibial, and peroneal arteries are normal in CTA appearance. Normal three-vessel runoff into right foot. Left leg runoff demonstrates minimal/mild scattered arteriosclerotic disease in the distal common femoral, popliteal, and posterior tibial arteries without critical stenosis/obstruction. Remaining common iliac, external iliac, deep femoral, superficial femoral, anterior tibial, and peroneal arteries are normal in CTA appearance. Normal three-vessel runoff into left foot. Noncontrasted stomach and bowel loops are nonobstructed. Again mild fatty hepatomegaly measuring 20 cm and 12.8 cm splenomegaly. Stable tiny gallstone, tiny hepatic/splenic calcified granulomas, small right renal cysts, and enlarged prostate gland. No free fluid/air. Lung bases again demonstrates cardiomegaly, scattered fibrosis/scarring, and small right lower lobe calcified granuloma. Visualized osseous structures intact again with osteopenia, moderate degenerative changes throughout the spine, and mild degenerative changes both hips. Left leg demonstrates incidental 4.8 x 6.7 x 8.6 cm semimembranosus intramuscular lipoma. Impression: 1. Again scattered arteriosclerotic disease with very minimally enlarging distal AAA. 2. Bilateral leg runoff demonstrates minimal/mild scattered arteriosclerotic without critical stenosis/obstruction. Three-vessel runoff into both feet. 3. Again incidental cardiomegaly, pulmonary fibrosis/scarring, old granulomatous disease, fatty hepatomegaly, splenomegaly, right renal cysts, tiny gallstone, enlarged prostate, and chronic bony findings. 4. Incidental left leg semimembranosus intramuscular lipoma not previously imaged.
== END 2022-02-24 23:28 | disposition short-term general hospital (02) ==
LOC: ED 11:57
DX: I71.4 Abdominal aortic aneurysm, without rupture (principal); G89.29 Other chronic pain; M54.50 Low back pain, unspecified; N17.9 Acute kidney failure, unspecified; M51.36 Other intervertebral disc degeneration, lumbar region; I25.10 Atherosclerotic heart disease of native coronary artery without angina pectoris; I16.0 Hypertensive urgency; I10 Essential (primary) hypertension; E78.5 Hyperlipidemia, unspecified; Z79.01 Long term (current) use of anticoagulants; Z79.899 Other long term (current) drug therapy
CPT/HCPCS: 36000; 36415; 72131; 75635; 80053; 81015; 85025; 96374; 96375; 99285; J2270; J2405

== ENCOUNTER 2022-10-12 10:11 | Day surgery (SDC) | payer MEDICARE, OTHER ==
[2022-10-12] MEDS ORDERED: Depo-Medrol 40 MG/ML IM ONE (10:12)
[2022-10-12] MEDS ORDERED: Sodium Chloride 0.9(Preservative Free) 10 ML IJ ONE (10:12)
[2022-10-12 11:22] LABS: INR 1.3 (0.8-3.0); PROTIME 13.5 SECONDS (9.4-12.5)
[2022-10-12] MEDS ORDERED: DIPRIVAN 200 MG/20 ML IV ONE (12:01)
--- NOTE | 2022-10-12 12:35 | XRAY ---
Indication: Caudal TANYA. Intraoperative fluoroscopy provided 17 seconds. 6 digital spot image submitted for interpretation demonstrates caudal needle tip projecting mid sacrum. Small amount of contrast injected for needle tip placement. Correlate with intraoperative findings/report. Incidental partially visualized bilateral iliac stent grafts.
[2022-10-12] MEDS ORDERED: Lactated Ringers 1,000 ML IV ONE (12:52)
--- NOTE | 2022-10-12 14:49 | XRAY ---
17 seconds of fluoroscopy was used in surgery for a caudal TANYA.
== END 2022-10-12 12:30 | disposition home or self-care (01) ==
LOC: SDC-PAIN 10:11
PROVIDERS: ATTEND Psychiatry & Neurology Pain Medicine
DX: M54.16 Radiculopathy, lumbar region (principal); Z79.01 Long term (current) use of anticoagulants; Z79.899 Other long term (current) drug therapy
CPT/HCPCS: 36415; 62323; 72100; 77003; 85610; J1030; J2704; Q9966

== ENCOUNTER 2022-11-16 10:44 | Day surgery (SDC) | payer MEDICARE, OTHER ==
[2022-11-16] MEDS ORDERED: LIDOCAINE HCL 1% 50 MG/5 ML VL PF IJ ONE (10:45)
[2022-11-16] MEDS ORDERED: Depo-Medrol 40 MG/ML IM ONE (10:45)
[2022-11-16 11:19] LABS: INR 1.71 (0.8-3.0); PROTIME 17.3 SECONDS (9.4-12.5)
--- NOTE | 2022-11-16 12:50 | XRAY ---
17 seconds of fluoroscopy was used in surgery for a bilateral L4-S1 MBB.
--- NOTE | 2022-11-16 12:56 | XRAY ---
Indication: Bilateral L4-S1 MBB. Intraoperative fluoroscopy provided for 17 seconds. Single digital spot image submitted for interpretation demonstrates posterior needle tips projecting over the expected left and right L4-S1 nerve roots. Correlate with intraoperative findings/report.
[2022-11-16] MEDS ORDERED: Lactated Ringers 1,000 ML IV ONE (13:28)
== END 2022-11-16 12:30 | disposition home or self-care (01) ==
LOC: SDC-PAIN 10:44
PROVIDERS: ATTEND Psychiatry & Neurology Pain Medicine
DX: M47.816 Spondylosis without myelopathy or radiculopathy, lumbar region (principal); Z79.899 Other long term (current) drug therapy; Z79.01 Long term (current) use of anticoagulants
CPT/HCPCS: 36415; 64493; 64494; 72020; 77002; 85610; J1030; J2001